=== PATIENT | male | born 2000 | race Caucasian/White ===

== ENCOUNTER 2025-07-18 08:21 | Emergency (ER) | payer OTHER, SELFPAY ==
[2025-07-18 08:24] VITALS: BP 131/97; PULSE 103; RESP 18; TEMP 36.6; O2SAT 97; BMI 30.7
--- NOTE | 2025-07-18 08:39 | ED.GENADULT ---
[facility] - General Adult General Chief complaint: Eye Problems Stated complaint: R eye irritation Time Seen by Provider: 07/18/25 08:29 Source: patient, RN notes reviewed and old records reviewed Mode of arrival: ambulatory Limitations: no limitations History of Present Illness ED Provider: Timo [facility] narrative: Patient is a 25-year-old male presenting to the emergency department with complaint of right eye redness and periorbital swelling for the past 2 days. States that he wears his daily contacts for several weeks at a time. When he noted the redness the other day he removed his contact. He subsequently tried to put his contact back in but immediately removed at as it was very uncomfortable. At rest he denies any pain or itching. Denies any discharge or drainage. Denies any changes in vision. States he the has been unable to drive while wearing his regular classes because he does not have the same depth perception that he has with contact lenses. This has also interfered with work. Was also using a solution which he feels was for storing contacts, not to be used as eyedrops. MD complaint: eye irritation Related Data Previous Rx's ?Medication ?Instructions ?Recorded ciprofloxacin HCl 0.3 % eye drops 2 drp ophthalmic (eye) QID 5 days 07/18/25 #5 mL ketotifen fumarate 0.025 % (0.035 1 drp ophthalmic (eye) BID 7 days 07/18/25 %) eye drops #5 mL Allergies Allergy/AdvReac Type Severity Reaction Status Date / Time No Known Allergies Allergy Verified 07/18/25 08:27 Review of Systems Review of Systems: as per hpi Yes all other systems are reviewed and are negative Constitutional: Constitutional: Reports as per HPI REPLACED BY [facility] Social History Social History Advance Directives: No Advance Directives Information Provided: No Do you have a plan to hurt others: No Plan Physical Exam ED Vital Signs: Vital Signs - 24 hr 07/18/25 08:24 Temperature 97.9 F Pulse Rate 103 H Respiratory Rate 18 Blood Pressure 131/97 H Pulse Oximetry 97 Oxygen Delivery Method Room Air BMI result Body Mass Index 30.7 Vital signs have been reviewed and appear to be correct. Blood pressure normal. Heart rate normal. Respiratory rate normal. Temperature normal. Oxygen saturation normal. Const General: cooperative, healthy appearing and no acute distress Orientation/consciousness: oriented to person, oriented to place, oriented to time and patient oriented x3 Limitations: no limitations [facility] Head: Yes normocephalic and Yes atraumatic Ears: external ears normal General nose exam: Normal external nose present Face and sinus: Yes face symmetric Mouth: oropharynx normal and moist mucous membranes Throat: Yes uvula midline Eyes Alignment and Position: alignment normal and position normal Periorbital: periorbital findings abnormal right periorbital erythema (inferior) Eyelids: Yes eyelids normal Conjunctivae: conjunctival abnormal right conjunctival injection diffuse; without discharge Sclerae: sclerae normal Corneas: corneas abnormal on the right fluorescein used and abrasion punctate and at the following clock position (5:00) and fluorescein used Pupils: Equal, round and reactive pupils present EOM: EOMs intact bilaterally (without pain) Direct Ophthalmoscopy: normal light reflex and anterior chamber normal no cell/flare noted Neck Neck: Yes normal visual inspection and Yes supple Resp Effort & Inspection: normal respiratory effort and able to speak in complete sentences Auscultation: clear to auscultation bilaterally Cardio Rate: regular rate Rhythm: regular rhythm Heart sounds: S1 normal heart sound present and S2 normal heart sound present GI Palpation (GI): Soft to palpation and nontender Auscultation: normoactive bowel sounds General: Yes no CVA tenderness Back/Spine/Pelvis Back: no CVA tenderness Skin General skin exam: elasticity normal and turgor normal Neuro General: oriented to person, oriented to place, oriented to time, patient oriented x3, moves all extremities, no focal motor deficits and CN's II-XI intact bilaterally Cranial nerves: Yes Equal, round and reactive pupils present Cognition (Neuro): normal cognition Extrem General: Yes full ROM, Yes no pedal edema and Yes no calf tenderness Psych Mental Status: mental status grossly normal Affect: normal affect Thought process: Normal thought process present Medical Decision Making Medical Decision Making MDM Narrative: Patient is a 25-year-old male presenting to the emergency department with complaint of right eye redness and periorbital swelling for the past 2 days. On exam patient is awake, A+Ox3, VS WNL, afebrile, normal neurological exam without focal deficits, physical exam findings as above. Given reported symptoms and physical exam findings, initial differential includes but is not limited to conjunctivitis, corneal abrasion. Physical exam findings not consistent with bacterial keratitis. Punctate corneal abrasion noted on Wood's lamp exam with fluorescein stain, no flare cells or ulcerations. Patient also evaluated by Dr. Levine who is in agreement with this. Will treat with course of ciprofloxacin drops as well as ketotifen drops. Will refer to Dr. 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 Return precautions discussed at bedside. Will provide patient with excuse note for work as he is unable to fully execute his job while wearing regular glasses. Patient verbalized understanding of and agreement with plan. Differential Diagnosis Differential Diagnoses: The differential diagnosis associated with the presentation includes As per [facility] Admission/Observation Consideration of admission/observation: Escalation of care including admission/observation considered Patient would have been admitted to the hospital and transferred to appropriate facility had their clinical presentation warranted hospital admission. External Record Review External record reviewed: Inpatient record, Office record and Outpatient record Prescription Management I considered prescription management with: Pain Medication and Antibiotic Discharge Plan Discharge Clinical Impression: Corneal abrasion, Conjunctivitis Patient Disposition: Home, Self-Care Instructions: Corneal Abrasion (DC), Conjunctivitis (ED) Additional Instructions: You were evaluated in the emergency department today for eye redness and discomfort. You have a small abrasion on your cornea as well as conjunctivitis. You are being treated with antibiotic eye drops as well as drops for discomfort. Use all medications as prescribed. Call the drum cleaner for a follow up appointment. Avoid touching or rubbing your eye. DO NOT WEAR CONTACTS UNTIL TREATMENT IS COMPLETE AND SYMPTOMS HAVE FULLY RESOLVED. Return to the emergency department if you develop worsening pain, redness, swelling, changes in vision, discharge or drainage or any other new or concerning symptoms. Prescriptions: New ketotifen fumarate 0.025 % (0.035 %) drops 1 drp ophthalmic (eye) BID 7 Days Qty: 5 0RF Rx Instructions: administer at least 8 hours apart ciprofloxacin HCl 0.3 % drops 2 drp ophthalmic (eye) QID 5 Days Qty: 5 0RF Rx Instructions: give day 1 of course of therapy Referrals: Carlo Rendon [Physician, Ophthalmology] Referral Note: wearing daily contact lenses for weeks at a time Clinical Impression: Corneal abrasion; Conjunctivitis Stand Alone Forms: Work/School Release Print Language: [place]
[2025-07-18] MEDS: Fluorescein Sodium STRIP 1 STRIP EYE-RIGHT (09:15)
[2025-07-18 09:36] VITALS: BP 131/97; PULSE 103; RESP 18; TEMP 36.6; O2SAT 97
== END 2025-07-18 09:36 | disposition home or self-care (01) ==
PROVIDERS: Emergency Provider Emergency Medicine
DX: H10.9 Unspecified conjunctivitis (principal); S05.01XA Injury of conjunctiva and corneal abrasion without foreign body, right eye, initial encounter; X58.XXXA Exposure to other specified factors, initial encounter; Y93.9 Activity, unspecified; Y92.9 Unspecified place or not applicable; Y99.9 Unspecified external cause status; H57.89 Other specified disorders of eye and adnexa
CPT/HCPCS: 99282; 99283